=== PATIENT | female | born 1945 | race Caucasian/White ===

== ENCOUNTER 2018-08-25 07:34 | Emergency (ER) | payer OTHER ==
[~2018-08-25] VITALS: Ht 154.9 cm; Wt 60.8 kg
[2018-08-25] MEDS ORDERED: GLIMEPIRIDE2 MG (07:52)
[2018-08-25] MEDS ORDERED: SYNTHROID75 MCG (07:52)
== END 2018-08-25 10:01 | disposition home or self-care (01) ==
LOC: ER 07:34
DX: R42 Dizziness and giddiness (principal)